=== PATIENT | female | born 1970 | race Caucasian/White ===

== ENCOUNTER 2017-02-24 12:45 | Day surgery (SDC) | payer BC ==
[~2017-02-24] VITALS: Ht 157.5 cm; Wt 58.0 kg
[~2017-02-24 12:45] MED LIST: BUPIVACAINE/PF 0.5% ONE; EPINEPHRINE 1 MG/ML, 1ML ONE
[2017-02-24] MEDS ORDERED: LACTATED RINGERS 1,000 ML IV SCH (13:43)
[2017-02-24] MEDS ORDERED: GABA300C10 PO (13:45)
[2017-02-24] MEDS ORDERED: TEMA30CA6 PO (13:45)
[2017-02-24] MEDS ORDERED: CITA40TA12 PO (13:45)
[2017-02-24 13:47] VITALS: BP 118/77
[2017-02-24 13:50] LABS: HCG UR LOT HCG7030192
[2017-02-24 13:56] LABS: HCG UR OBC PASS
[2017-02-24] MEDS ORDERED: FENTANYL PF 100 MCG/2ML ONE ×2 (14:24→14:48)
[2017-02-24] MEDS ORDERED: MIDAZOLAM 1 MG/ML, 2ML ONE (14:24)
[2017-02-24] MEDS ORDERED: DEXAMETHASONE 4 MG/ML, 1ML ONE ×2 (14:25)
[2017-02-24] MEDS ORDERED: PROPOFOL 10 MG/ML, 20ML ONE ×2 (14:25→14:45)
[2017-02-24] MEDS ORDERED: ONDANSETRON 2MG/ML, 2ML ONE ×2 (14:25)
[2017-02-24] MEDS ORDERED: LIDOCAINE GEL 2%, 5ML ONE (14:33)
[2017-02-24] MEDS ORDERED: CEFAZOLIN 1,000 MG ONE (14:35)
[2017-02-24] MEDS ORDERED: EPHEDRINE 50 MG/ML, 1ML IVPush PRN (15:00)
[2017-02-24] MEDS ORDERED: PROMETHAZINE 25 MG/ML, 1ML IV PRN (15:00)
[2017-02-24] MEDS ORDERED: OXYcodone 5 MG/5 ML ORAL.SOL UDC PO PRN (15:00)
[2017-02-24] MEDS ORDERED: HYDROmorphone 1 MG/ML, 1ML IV PRN (15:00)
[2017-02-24] MEDS ORDERED: ACETAMINOPHEN 325 MG TABLET PO PRN (15:00)
[2017-02-24] MEDS ORDERED: DIAZEPAM 5 MG/ML, 2ML IVPush PRN (15:00)
[2017-02-24] MEDS ORDERED: LORazepam 2 MG/ML, 1ML IVPush PRN (15:00)
[2017-02-24] MEDS ORDERED: FENTANYL PF 100 MCG/2ML IV PRN (15:00)
[2017-02-24] MEDS ORDERED: MEPERIDINE/PF 25MG/0.5ML IVPush PRN (15:00)
[2017-02-24] MEDS ORDERED: HYDROcodone/APAP 7.5-325MG/15ML UDC PO PRN (15:00)
[2017-02-24] MEDS ORDERED: ONDANSETRON 2MG/ML, 2ML IVPush PRN (15:00)
[2017-02-24] MEDS ORDERED: MIDAZOLAM 1 MG/ML, 2ML IV PRN (15:00)
[2017-02-24] MEDS ORDERED: LABETALOL 5MG/ML, 20ML IV PRN (15:00)
[2017-02-24] MEDS ORDERED: ACETAMINOPHEN 650 MG/20.3 ML UDC ONE (15:15)
[2017-02-24] MEDS ORDERED: OXYcodone 5 MG/5 ML ORAL.SOL UDC ONE (15:15)
== END 2017-02-24 17:05 ==
LOC: OUT 12:45
PROVIDERS: ATTEND Surgery
DX: N61.0 Mastitis without abscess (principal); F41.9 Anxiety disorder, unspecified; F32.9 Major depressive disorder, single episode, unspecified; F17.210 Nicotine dependence, cigarettes, uncomplicated; Z88.1 Allergy status to other antibiotic agents; Z72.89 Other problems related to lifestyle; Z98.890 Other specified postprocedural states
CPT/HCPCS: 19120; 81025; 88305; J0171; J0690; J1100; J2250; J2405; J2704; J3010; J3490; J7120